=== PATIENT | male | born 1955 | race Caucasian/White ===

== ENCOUNTER 2016-12-15 08:57 | Emergency (ER) | payer OTHER ==
[2016-12-15] MEDS ORDERED: OPTIRAY 350 100 ML VIAL HMH IV ONE (08:58)
== END 2016-12-15 16:16 | disposition home or self-care (01) ==
LOC: ER 08:57
DX: M79.651 Pain in right thigh (principal); M79.604 Pain in right leg; E78.00 Pure hypercholesterolemia, unspecified; F10.10 Alcohol abuse, uncomplicated; Z79.899 Other long term (current) drug therapy; Z86.718 Personal history of other venous thrombosis and embolism; Z95.5 Presence of coronary angioplasty implant and graft; Z79.82 Long term (current) use of aspirin; F17.290 Nicotine dependence, other tobacco product, uncomplicated
CPT/HCPCS: 36415; 73706; 80053; 82565; 85025; 85610; 85730; 99283; Q9967